=== PATIENT | female | born 1970 | race Caucasian/White ===

== ENCOUNTER 2019-11-29 09:06 | Emergency (ER) | payer BC, OTHER ==
[2019-11-30 12:15] LABS: SARS-CoV-2 MS2 Positive; SARS-CoV-2 N Gene Positive; SARS-CoV-2 S Gene Positive; SARS-CoV-2 orf1ab Positive
== END 2019-11-29 10:04 | disposition home or self-care (01) ==
LOC: ERS 09:06
DX: U07.1 COVID-19 (principal); J34.89 Other specified disorders of nose and nasal sinuses
CPT/HCPCS: 87635; 99283; U0003